=== PATIENT | male | born 1970 | race Caucasian/White ===

== ENCOUNTER 2018-01-21 20:31 | Inpatient (IN) | payer BC ==
[2018-01-21 21:01] LABS: Bilirubin Moderate (Negative); Blood, Urine Large (Negative); Clarity TURBID (Clear); Glucose, Urine (Dipstick) Negative (Negative); Leukocyte Large (Negative); Nitrite Positive (Negative); Protein, Urine (Dipstick) 300 mg/dL (Neg-Trace); Specific Gravity, Urine 1.027 (1.002-1.036); pH, Urine 6.5 (5.0-9.0)
[2018-01-21 21:02] LABS: Bacteria/HPF 1+ HPF (None Seen); Hyaline Casts/LPF 0-3 HYALINE CAST LPF (0-3 Hyaline); Pathc Cast-AUWi Flag 0.95 (0-2.49); Squamous Epithelial 0-3 HPF (0-3)
[2018-01-21 21:03] LABS: RBC/HPF GREATER THAN 50-TNTC HPF (0-3); Yeast-AUWi Flag 52.2 (0-25.0)
[2018-01-21 21:07] LABS: Yeast-All Forms None Seen HPF (None Seen)
[2018-01-21 23:11] LABS: #Basophils 0.1 thou/uL (0.0-0.2); #Lymphocytes 2.5 thou/uL (1.20-3.40); #Neutrophils 11.9 thou/uL (1.40-6.50); %Basophils 0.6 % (0.0-1.0); %Eosinophils 0.3 % (0.0-10.0); %Lymphocytes 16.2 % (21.0-51.0); %Monocytes 6.7 % (0.0-10.0); %Neutrophils 76.2 % (42.0-75.0); Hemoglobin 15.5 g/dL (14.0-18.0); Mean Corpuscular HGB CONC 35.2 g/dL (32.0-36.0); Mean Corpuscular Hemoglobin 31.2 pg (27.0-31.0); Mean Corpuscular Volume 88.6 fL (78.0-98.0); Mean Platelet Volume 7.9 fL (7.4-10.4); Platelet Count 253 thou/uL (130-400); Red Blood Cell (RBC) Count 4.98 mill/uL (4.70-6.10); White Blood Cell (WBC) Count 15.6 thou/uL (4.8-10.8)
[2018-01-21] MEDS ORDERED: Gabapentin 100 MG CAP PO SCH (23:30)
[2018-01-21 23:34] LABS: ALT (SGPT) 37 U/L (8-55); AST (SGOT) 16 U/L (5-34); Albumin 4.1 g/dL (3.5-5.0); Alkaline Phosphatase 82 U/L (40-150); Anion Gap 15 mmol/L (10-20); BUN (Urea Nitrogen) 19 mg/dL (8.9-20.6); Calc. Creatinine Clearance 0 mL/min (70-130); Calcium 9.3 mg/dL (7.8-10.44); Carbon Dioxide 23 mmol/L (22-29); Chloride 99 mmol/L (98-107); Estimated GFR-MDRD Greater than 90; Globulin 3.2 g/dL (2.4-3.5); Glucose 136 mg/dL (70-105); Potassium 3.5 mmol/L (3.5-5.1); Protein, Total 7.3 g/dL (6.0-8.3); Sodium 133 mmol/L (136-145)
[2018-01-21] MEDS ORDERED: Phenazopyridine HCl 97.5 MG TABLET PO SCH (23:45)
[2018-01-22] MEDS ORDERED: cefTRIAXone\\ROCEPHIN 2 GM VIAL ONE (00:02)
[2018-01-22] MEDS ORDERED: Ketorolac Tromethamine 30 MG/ML VIAL ONE (00:02)
[2018-01-22] MEDS ORDERED: Acetaminophen 325 MG TAB PO PRN (01:27)
[2018-01-22] MEDS ORDERED: Ondansetron HCl/PF 4 MG/2 ML Vial IVP PRN (01:27)
[2018-01-22] MEDS ORDERED: Ondansetron ODT 4 MG TAB SL PRN (01:27)
[2018-01-22 01:33] VITALS: BMI 52.4
[2018-01-22] MEDS ORDERED: Dextrose 5% in Water 1,000 ML IV PRN (09:00)
[2018-01-22] MEDS ORDERED: Acetaminophen 650 MG Suppository PR PRN (09:00)
[2018-01-22] MEDS ORDERED: Bisacodyl 5 MG TAB PO PRN (09:00)
[2018-01-22] MEDS ORDERED: HumaLOG 300 UNITS/3 ML VIAL SC PRN (09:00)
[2018-01-22] MEDS ORDERED: Dextrose 50% Abboject 50 ML SYRINGE SLOW IVP PRN (09:00)
--- NOTE | 2018-01-22 09:31 | CT ---
PRELIMINARY REPORT/[facility]/EMERGENTY AFTER-HOURS PROCEDURE CT Abdomen and Pelvis Without Intravenous Contrast CLINICAL HISTORY: 47 years old, male; Signs and symptoms; Other: Dysuria; Patient HX: M47 presents to ed C/O uti SX of dysuria, hematuria and frequency that began today at 1600. Pt is not on any blood thinners and denies any HX of hematuria. Pt reports multiple episodes of hematuria. Pt denies HX of kidney stones, utis. Pt reports suprapubic abd pain. Pt reports GANT and chills. Pt denies back pain, trauma o r corwin. Pt has no HX of enlarged prostate. TECHNIQUE: Axial computed tomography images of the abdomen and pelvis without intravenous contrast. Coronal refo rmatted images were created and reviewed. COMPARISON: No relevant prior studies available. FINDINGS: Lung bases: No acute findings. No mass. No consolidation. ABDOMEN: Liver: 20 cm. No liver mass. Gallbladder and bile ducts: No acute findings. No calcified stones. No ductal dilation. Pancreas: No acute findings. No ductal dilation. Spleen: Splenomegaly at 14.5 cm. Adrenals: No acute findings. No mass. Kidneys and ureters: No acute findings. No obstructing stones. No hydronephrosis. Several small left peripelvic renal cysts. Stomach and bowel: There is moderate colonic fecal retention. No obstruction. No mucosal thickening. PELVIS: Appendix: No findings to suggest acute appendicitis. Bladder: No acute findings. No stones. Reproductive: Unremarkable as visualized. ABDOMEN and PELVIS: Intraperitoneal space: No acute findings. No free air. No significant fluid collection. Bones/joints: Chronic degenerative spinal changes without acute fracture or dislocation. Soft tissues: No acute findings. Vasculature: No acute findings. No abdominal aortic aneurysm. Lymph nodes: No acute findings. No enlarged lymph nodes. IMPRESSION: Fatty liver. Hepatosplenomegaly. No renal or ureteral stones. Thank you for allowing us to participate in the care of your patient. Dictated and Authenticated by: Yevgeniy Barr MD 01/22/2018 1:10 AM Central Time ([place] & [place]) FINAL REPORT CT ABDOMEN AND PELVIS WITHOUT CONTRAST STONE PROTOCOL: HISTORY: Pain. COMPARISON: None available. FINDINGS: The findings and impression are concordant with the preliminary report. POS: [facility]
[2018-01-22] MEDS: Enoxaparin Sodium 40 MG/0.4 ML SYRINGE SC SCH (09:39)
--- NOTE | 2018-01-22 12:38 | HP ---
PRIMARY CARE PROVIDER: Nehemias Chanel M.D. CHIEF COMPLAINT: Hematuria. HISTORY OF PRESENT ILLNESS: Mr. Valadez is a pleasant 47-year-old gentleman who was seen at [facility] on 01/22/2018. He reports that 2 days ago, he developed increased frequency of urination, decreased urine volume as well as dysuria. Yesterday around 4:00 p.m., he developed low grade fevers, with temperatures in the 99+ Fahrenheit range. He also developed chills at that time. He also started seeing blood in his u rine. He therefore came to the emergency room. He denies any chest pain or shortness of breath. He denies any nausea, vomiting, diarrhea, or abdomi nal pain. REVIEW OF SYSTEMS: All other systems reviewed and found to be negative. 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 PAST SURGICAL HISTORY: Left below knee amputation, appendectomy, right shoulder surgery, titanium pl ate to skull and bone anchored hearing aid. SOCIAL HISTORY: The patient chews tobacco. He drinks alcohol occasionally. He denies recreational drug use. FAMILY HISTORY: Significant for diabetes mellitus on his mother's side. ALLERGIES: No known drug allergies. CURRENT MEDICATIONS: Valsartan/hydrochlorothiazide 80/12.5 mg daily, Tradjenta 5 mg daily, and metfo rmin 500 mg 2 times a day. PHYSICAL EXAMINATION: GENERAL: On examination, Mr. Valadez is awake and alert, not in acute distress. VITAL SIGNS: He is afebrile. Blood pressure is 107/59, pulse is 92, he is breathing at rate of 16, and saturating 95% on room air. He is afebrile. He is morbidly obese, with a BMI of 52.5. EYES: No scleral icterus. No conjunctival pallor. ENT: Moist mucosal membranes. No oropharyngeal erythema or exudates. NECK: Supple, nontender, normal range of movement. Trachea is midline. RESPIRATORY: Accessory muscles of breathing are not active. Chest wall movements are symmetric bila terally. LUNGS: Clear to auscultation without wheeze, rhonchi or crepitations. CARDIOVASCULAR: S1 and S2 are heard, regular. Peripheral pulses are palpable. No carotid bruit, no pericardial rub. ABDOMEN: Soft, distended, nontender. Bowel sounds heard, no hepatomegaly, no splenomegaly, no costo vertebral angle tenderness. NEUROLOGIC: Cranial nerves II-XII intact. MUSCULOSKELETAL: He is status post left above knee amputation. Moving all 4 extremities. SKIN: No rashes or subcutaneous nodules. LYMPHATIC: No cervical lymphadenopathy. PSYCHIATRIC: Normal mood, normal affect. Patient is oriented to person, place, and time. IMAGING DATA AND LABORATORY DATA: Mr. Valadez's labs and investigations were reviewed. He has leuko cytosis with 15,600 white cells, of which 76.2% are neutrophils. He has normal hemoglobin, normal pl atelet count, decreased sodium of 133, otherwise unremarkable comprehensive metabolic profile and lac tic acid normal at 1.1. Urinalysis is positive for ketones, blood, nitrite, bilirubin, urobilinogen and large amount of leukocyte esterase. He also had CT scan of the abdomen and pelvis, which showed fatty liver, hepatosplenomegaly and no renal or ureteral stones. ASSESSMENT AND PLAN: Mr. Valadez is a pleasant 47-year-old gentleman who was seen at [facility] on 01/22/2018. His problem list includes: 1. Sepsis: Mr. Valadez was tachycardic at presentation to the emergency room and also had leukocyto sis. He has a suspected source of infection in the urinary tract. He will be admitted to the hospit al for further management, including intravenous fluids and antibiotics. 2. Urinary tract infection: We will treat him with intravenous ceftriaxone, which was already start ed in the emergency room. We will await urine cultures. 3. Diabetes mellitus type 2: Start Accu-Cheks, insulin sliding scale. 4. Hypertension: Monitor vital signs, titrate antihypertensives as needed. Many thanks for allowing me to participate in your patient's care. Please feel free to contact me wi th any questions or concerns. LEVEL OF RISK: Moderate. LEVEL OF COMPLEXITY: Moderate.
[2018-01-22] MEDS: Acetaminophen 325 MG TAB PO PRN (12:44)
[2018-01-22] MEDS: Ketorolac Tromethamine 30 MG/ML VIAL IVP PRN (18:39)
[2018-01-22] MEDS: Gabapentin 100 MG CAP PO SCH (18:39)
[2018-01-22] MEDS: metFORMIN 500 MG TAB PO SCH (19:56)
[2018-01-22] MEDS ORDERED: cefTRIAXone\\ROCEPHIN 1 GM in Sodium Chloride 0.9% 100 ML IVPB SCH (23:59)
[2018-01-23] MEDS: Ketorolac Tromethamine 30 MG/ML VIAL IVP PRN (00:34)
[2018-01-23 04:41] LABS: #Eosinphils 0.1 thou/uL (0.0-0.7); #Lymphocytes 2.2 thou/uL (1.20-3.40); #Monocytes 0.8 thou/uL (0.11-0.59); #Neutrophils 7.4 thou/uL (1.40-6.50); %Basophils 0.4 % (0.0-1.0); %Eosinophils 1.1 % (0.0-10.0); %Lymphocytes 20.9 % (21.0-51.0); %Monocytes 7.7 % (0.0-10.0); Hemoglobin 13.7 g/dL (14.0-18.0); Mean Corpuscular HGB CONC 33.2 g/dL (32.0-36.0); Mean Corpuscular Hemoglobin 29.7 pg (27.0-31.0); Mean Corpuscular Volume 89.7 fL (78.0-98.0); Mean Platelet Volume 8.2 fL (7.4-10.4); Platelet Count 211 thou/uL (130-400); RBC Distribution Width 12.1 % (11.5-14.5); White Blood Cell (WBC) Count 10.6 thou/uL (4.8-10.8)
[2018-01-23 05:09] LABS: Anion Gap 12 mmol/L (10-20); BUN (Urea Nitrogen) 14 mg/dL (8.9-20.6); Calc. Creatinine Clearance 274 mL/min (70-130); Calcium 8.6 mg/dL (7.8-10.44); Carbon Dioxide 25 mmol/L (22-29); Chloride 103 mmol/L (98-107); Estimated GFR-MDRD Greater than 90; Glucose 112 mg/dL (70-105); Potassium 3.6 mmol/L (3.5-5.1); Sodium 136 mmol/L (136-145)
[2018-01-23] MEDS: Gabapentin 100 MG CAP PO SCH ×2 (05:35→12:14)
[2018-01-23] MEDS: metFORMIN 500 MG TAB PO SCH (08:10)
[2018-01-23] MEDS: Enoxaparin Sodium 40 MG/0.4 ML SYRINGE SC SCH (08:13)
[2018-01-23] MEDS ORDERED: Hydrochlorothiazide 25 MG TAB PO SCH (09:00)
[2018-01-23] MEDS ORDERED: (Liraglutide [Victoza 2-Pak] 1.8 MG) SC SCH (09:00)
[2018-01-23] MEDS ORDERED: Valsartan 80 MG TAB PO SCH (09:00)
[2018-01-23] MEDS ORDERED: Alogliptin 25 MG TAB PO SCH (09:00)
[2018-01-23] MEDS ORDERED: Pioglitazone HCl 15 MG TAB PO SCH (09:00)
[2018-01-23] MEDS: Acetaminophen 325 MG TAB PO PRN (12:24)
[2018-01-23 16:06] VITALS: BP 148/83; TEMP 98.1
[2018-01-23] MEDS ORDERED: Ciprofloxacin 500 MG TAB PO SCH (16:45)
--- NOTE | 2018-01-24 01:08 | DIS ---
DATE OF ADMISSION: 01/22/2018 DATE OF DISCHARGE: 01/23/2018 PRIMARY CARE PROVIDER: Nehemias Chanel M.D. DISCHARGE DIAGNOSES: 1. Sepsis. 2. Urinary tract infection. CONDITION OF PATIENT ON THE DAY OF DISCHARGE: Stable. I assessed Mr. Valadez on the day of discharg e. He denies any chest pain or shortness of breath. Vital signs are stable. S1 and S2 are heard, r egular. Lungs are clear to auscultation bilaterally. DISCHARGE MEDICATIONS: He is being discharged home on ciprofloxacin 500 mg 2 times a day, 9 more dos es starting 01/24/2018 morning. Otherwise, no change was made to his home medications as dictated on my history and physical note on 01/22/2018. HOSPITAL COURSE: Mr. Valadez is a pleasant 47-year-old gentleman who was admitted to [facility] on 01/22/2018 for sepsis secondary to urinary tract infection. He was treated wit h intravenous ceftriaxone. He improved clinically. Urine cultures grew pansensitive Escherichia col i. He is being switched to oral ciprofloxacin prior to discharge. He had CT scan of the abdomen and pelvis on 01/21/2018. He had fatty liver, hepatosplenomegaly and n o renal or ureteral stones. On the day of discharge, he has white count 10,600, hemoglobin 13.7, platelet count 211,000, normal e lectrolytes and creatinine of 0.81. Many thanks for allowing me to participate in your patient's care. Please feel free to contact me wi th any questions or concerns. DISCHARGE DESTINATION: Home. TOTAL AMOUNT OF TIME SPENT COORDINATING THIS DISCHARGE: 32 minutes.
== END 2018-01-23 17:57 | disposition home or self-care (01) | DRG 872 ==
LOC: ERS 20:31 → 2NO 01-22 00:47 → T4-A 01-22 14:44
PROVIDERS: ADMIT Hospitalist; ATTEND Hospitalist
DX: A41.51 Sepsis due to Escherichia coli [E. coli] (principal); N10 Acute pyelonephritis; B96.20 Unspecified Escherichia coli [E. coli] as the cause of diseases classified elsewhere; E11.9 Type 2 diabetes mellitus without complications; Z79.4 Long term (current) use of insulin; I10 Essential (primary) hypertension; F17.220 Nicotine dependence, chewing tobacco, uncomplicated
CPT/HCPCS: 36415; 36416; 74176; 80048; 80053; 81003; 81015; 83605; 85025; 87040; 87077; 87086; 87186; 96365; 96375; A4216; J0696; J1650; J1885; J7050